=== PATIENT | male | born 1980 | race Caucasian/White ===

== ENCOUNTER 2020-07-11 13:11 | Emergency (ER) | payer OTHER ==
[~2020-07-11] VITALS: Ht 190.5 cm; Wt 101.6 kg
[2020-07-11 13:24] VITALS: Ht 190.5 cm; Wt 101.6 kg
[2020-07-11 14:06] VITALS: BP 145/86
== END 2020-07-11 14:07 | disposition home or self-care (01) ==
LOC: ED 13:11
DX: K64.5 Perianal venous thrombosis (principal); Z98.890 Other specified postprocedural states